=== PATIENT | male | born 2000 | race Caucasian/White ===

== ENCOUNTER 2021-05-26 03:15 | Emergency (ER) | payer OTHER ==
[~2021-05-26] VITALS: Ht 170.2 cm; Wt 49.9 kg
[2021-05-26 06:14] VITALS: BP 112/76
== END 2021-05-26 06:14 | disposition home or self-care (01) ==
LOC: M.ERS 03:15
DX: S02.5XXA Fracture of tooth (traumatic), initial encounter for closed fracture (principal); S13.9XXA Sprain of joints and ligaments of unspecified parts of neck, initial encounter; S01.511A Laceration without foreign body of lip, initial encounter; Z88.8 Allergy status to other drugs, medicaments and biological substances; V89.2XXA Person injured in unspecified motor-vehicle accident, traffic, initial encounter; Y93.89 Activity, other specified; Y92.488 Other paved roadways as the place of occurrence of the external cause; Y99.8 Other external cause status